=== PATIENT | female | born 1990 | race Caucasian/White ===

== ENCOUNTER 2016-07-29 19:00 | Emergency (ER) | payer MEDICAID, SELFPAY ==
[~2016-07-29] VITALS: Ht 170.2 cm; Wt 78.2 kg
[2016-07-29] MEDS ORDERED: CEFTRIAXONE 250 MG IM ONE (19:30)
[2016-07-29] MEDS ORDERED: AZITHROMYCIN 500 MG TABLET PO ONE (19:30)
[2016-07-29 19:59] LABS: ASPARTATE AMINO TRANSFERASE 9 U/L (15-37); BLOOD UREA NITROGEN 14 mg/dL (7-18)
[2016-07-29] MEDS ORDERED: AZITHROMYCIN 500 MG TABLET ONE (20:25)
[2016-07-29] MEDS ORDERED: CEFTRIAXONE 250 MG ONE (20:26)
[2016-07-29 20:28] LABS: PATH.CAST-FLAG NOT PRESENT; SPERM-FLAG NOT PRESENT; SRC-FLAG NOT PRESENT; XTAL-FLAG NOT PRESENT; YLC-FLAG NOT PRESENT
[2016-07-29 20:57] VITALS: BP 109/57
== END 2016-07-29 21:34 | disposition home or self-care (01) ==
LOC: ED 21:00
DX: N89.8 Other specified noninflammatory disorders of vagina (principal); F15.10 Other stimulant abuse, uncomplicated
CPT/HCPCS: 36415; 80053; 81001; 84703; 85025; 87086; 87210; 87491; 87591; 87808; 96372; 99284; J0696; 87147

== ENCOUNTER 2016-09-21 01:05 | Observation (INO) | payer MEDICAID ==
[~2016-09-21] VITALS: Ht 170.2 cm; Wt 75.0 kg
[2016-09-21] MEDS ORDERED: Prozac PO (01:24)
[2016-09-21 02:19] LABS: DAU SCREEN DISCLAIMER
[2016-09-21 02:36] LABS: ASPARTATE AMINO TRANSFERASE 21 U/L (15-37); BLOOD UREA NITROGEN 13 mg/dL (7-18)
[2016-09-21 02:43] LABS: ACETAMINOPHEN < 2 mcg/mL (10-30)
[2016-09-21] MEDS ORDERED: DOCUSATE 100 MG CAPSULE PO PRN (15:30)
[2016-09-21] MEDS ORDERED: POLYETHYLENE GLYCOL 17 GM PACKET PO PRN (15:30)
[2016-09-21] MEDS ORDERED: BISACODYL 10 MG SUPP PR PRN (15:30)
[2016-09-21 16:35] VITALS: BP 101/64
[2016-09-21 19:18] VITALS: BP 96/62
[2016-09-22 08:10] VITALS: BP 103/66
[2016-09-22] MEDS: BUPROPION SR 150 MG TABLET PO SCH (08:40)
[2016-09-22 19:15] VITALS: BP 96/58
[2016-09-23] MEDS: BUPROPION SR 150 MG TABLET PO SCH (07:05)
[2016-09-23 08:30] VITALS: BP 109/61
[2016-09-23 19:43] VITALS: BP 99/62
== END 2016-09-24 03:55 ==
LOC: ED 02:01 → EDIP 14:39 → 3E 15:47
PROVIDERS: ADMIT Hospitalist; ATTEND Hospitalist
DX: R45.851 Suicidal ideations (principal); F32.9 Major depressive disorder, single episode, unspecified; F60.3 Borderline personality disorder; F15.10 Other stimulant abuse, uncomplicated; F17.200 Nicotine dependence, unspecified, uncomplicated; Z91.14 Patient's other noncompliance with medication regimen; Z91.5 Personal history of self-harm; Z72.89 Other problems related to lifestyle
CPT/HCPCS: 36415; 80053; 80307; 80329; 84703; 85025; 99285; G0378; G0480